=== PATIENT | male | born 1930 | race Caucasian/White ===

== ENCOUNTER 2018-05-02 09:11 | Outpatient (CLI) | payer OTHER ==
[~2018-05-02 09:11] MED LIST: ALTACE2.5 MG; GABAPENTIN300 M1; SIMVASTATIN40 MG
== END 2018-05-02 17:00 | disposition home or self-care (01) ==
LOC: SONOGRAMA 09:11
DX: R10.84 Generalized abdominal pain (principal)

== ENCOUNTER → 2018-11-14 | Outpatient (CLI) | payer OTHER ==
[~2018-11-14] MED LIST changes: +CLARITIN10 MG PO
== END | disposition home or self-care (01) ==
LOC: SONOGRAMA 14:14
DX: N63.11 Unspecified lump in the right breast, upper outer quadrant (principal)

== ENCOUNTER 2018-11-20 10:34 | Outpatient (CLI) | payer OTHER ==
[~2018-11-20 10:34] MED LIST changes: -CLARITIN10 MG PO
[2018-11-20] MEDS ORDERED: CLARITIN10 MG PO (12:28)
== END 2018-11-20 13:25 | disposition home or self-care (01) ==
LOC: OFIC 805 10:34
DX: J31.0 Chronic rhinitis (principal); H91.8X3 Other specified hearing loss, bilateral; H72.93 Unspecified perforation of tympanic membrane, bilateral; H73.893 Other specified disorders of tympanic membrane, bilateral; H61.23 Impacted cerumen, bilateral